=== PATIENT | female | born 1955 | race Caucasian/White ===

== ENCOUNTER 2021-04-14 13:03 | Emergency (ER) | payer OTHER, MEDICARE, SELFPAY ==
--- NOTE | ~2021-04-14 | XR_ITS ---
XR ribs RT 2V w CXR 2V DATE: 04/14/2021 17:35 INDICATION: Fall, right sided injury, pain TECHNIQUE: PA and lateral chest. 3 views of the right ribs. COMPARISON: None FINDINGS: Normal heart size. Aortic arch calcification, mild aortic unfolding. No hilar or mediastina l enlargement. The lungs are clear of infiltrate or consolidation. Diffuse osteopenia. No rib fracture is noted. Surgical clips overlie left breast shadow. IMPRESSION: No detected right rib fracture No active cardiac pulmonary disease Aortic calcification Surgical clips overlying left breast Reviewed, dictated and finalized at location [facility]. SCIENCES DIRECTOR
--- NOTE | ~2021-04-14 | CT_ITS ---
EXAMINATION: CT brain wo con DATE: 04/14/2021 18:01 INDICATION: Fall. Head injury. TECHNIQUE: Computed tomography (CT) of the head was performed without intravenous contrast. The mA wa s adjusted according to patient size. Iterative reconstruction technique was employed. Exam dose: 60 5.33 mGy-cm total exam DLP. COMPARISON: None FINDINGS: No intracranial mass lesion or hemorrhage or cerebrovascular accident. No midline shift or mass effect effect. No subdural or epidural hematoma. No fracture or bone destruction of the cranial vault. The mastoid air cells and included paranasal si nuses are normally aerated. IMPRESSION: No significant abnormality Reviewed, dictated and finalized at [facility]. Reviewed, dictated and finalized at location [facility]. [employer] INTERCEPT CONTROLLER IMPRESSION: No significant abnormality
[2021-04-14 13:44] VITALS: BP 177/78; PULSE 78; RESP 18; TEMP 36.6; O2SAT 100
[2021-04-14 15:30] VITALS: BP 155/99; PULSE 72; TEMP 36.7; O2SAT 100
[2021-04-14 16:08] VITALS: BP 161/82; PULSE 84; RESP 18; O2SAT 100
--- NOTE | 2021-04-14 18:38 | ED.FALL ---
HPI - Fall General Chief Complaint: Fall Stated Complaint: fall Time Seen by Provider: 04/14/21 16:18 Source: patient and family Mode of arrival: EMS Limitations: no limitations History of Present Illness HPI Narrative: 66-year-old was brought in ambulance with complaints of fall. Patient states that she lost her balance and fell hit the right side of her chest and back and her face. She denies loss of consciousness. She denies any chest pain. Denies any other injuries. complaint: fall Onset (ago): hour(s) (1) Fall from: standing Fall witnessed: yes, by family Place fall occurred: other (Parking lot) Loss of consciousness: none Context: other (Last balance) Location of injury: face and chest Severity: moderate Quality: dull Associated symptoms (after fall): headache and chest pain Related Data Allergies Allergy/AdvReac Type Severity Reaction Status Date / Time No Known Allergies Allergy Unknown Unverified 12/07/06 14:18 Review of Systems Review of Systems: All systems reviewed & are unremarkable except as noted in HPI and below Constitutional: Constitutional: Reports no additional constitutional complaints Eyes: Eyes: Reports no additional eye complaints ENT: Reports system reviewed and no additional complaints, except as documented Cardiovascular: Cardiovascular: Reports no additional cardiovascular complaints Respiratory: Respiratory: Reports as per HPI Gastrointestinal: Gastrointestinal: Reports no additional gastrointestinal complaints Musculoskeletal: Musculoskeletal: Reports no additional musculoskeletal complaints Integumentary/Breasts: Skin/Breast: Reports system reviewed and no additional complaints, except as docu Neurologic: Reports system reviewed and no additional complaints, except as documented [facility] Family History Family History Father Family history of congenital heart disease Patient's father is Sibling Patient's brother is in good health Family history of diabetes mellitus in first degree relative Family history of malignant neoplasm of breast in first degree relative, Onset Age: 51 Mother Family history of malignant neoplasm of breast in first degree relative, Onset Age: 86 Patient's mother is Social History Social History Smoking status: Never smoker Alcohol intake: never Exam Narrative: GENERAL: Well-appearing, obese, and in no acute distress. HEAD: Normocephalic, atraumatic. EYES: PERRLA and EOMI. ENT: Nares clear, no rhinorrhea or epistaxis. Mucous membranes moist. a small lac on the lower lip , no bleeding . no dental fracture NECK: Supple. CHEST: Clear to auscultation. No respiratory distress. minor bruising noted on the right side of the chest ,post axillary line HEART: Regular rate and rhythm. No murmur heard. Normal peripheral pulses. ABDOMEN: Soft, nontender, nondistended, normal active bowel sounds. EXTREMITIES: Normal range of motion. No edema. SKIN: Warm, dry, no rash. NEURO: No focal deficits. Alert and oriented x3. PSYCH: Normal mood and affect. Course Course Emergency Course: informed pt about her Xray finding , advised fall precautions, take pain meds as prescribed. Vital Signs Vital signs: Vital Signs Temperature 36.6 C 04/14/21 13:44 Pulse Rate 78 04/14/21 13:44 Respiratory Rate 18 04/14/21 13:44 Blood Pressure 177/78 H 04/14/21 13:44 Pulse Oximetry 100 04/14/21 13:44 Temperature 36.7 C 04/14/21 15:30 Pulse Rate 84 04/14/21 16:08 Respiratory Rate 18 04/14/21 16:08 Blood Pressure 161/82 H 04/14/21 16:08 Pulse Oximetry 100 04/14/21 16:08 MDM - Fall Imaging Data Radiologist's impression: ITS Impressions Ribs w/Chest X-Ray 04/14/21 17:44 IMPRESSION: No detected right rib fracture No active cardiac pulmonary disease Aortic calcification Surgica
[2021-04-14] MEDS: HYDROcodone/acetaminophen (*CRX) 5-325 MG TABLET 1 TAB PO (18:58)
[2021-04-14 19:03] VITALS: BP 166/105; PULSE 88; RESP 18; O2SAT 96
== END 2021-04-14 19:09 | disposition home or self-care (01) ==
PROVIDERS: Emergency Provider Family Medicine
DX: S00.83XA Contusion of other part of head, initial encounter (principal); S20.211A Contusion of right front wall of thorax, initial encounter; W18.39XA Other fall on same level, initial encounter
CPT/HCPCS: 70450; 71046; 71100; 99284; A9270

== ENCOUNTER 2022-11-01 15:54 | Emergency (ER) | payer MEDICARE, OTHER, SELFPAY ==
[2022-11-01 16:05] VITALS: BP 151/66; PULSE 77; RESP 16; TEMP 36.8; O2SAT 100
--- NOTE | 2022-11-01 16:27 | ED.LOWEXIN ---
HPI - Extremity Injury (Lower) General Chief Complaint: Extremity Injury, Lower Stated Complaint: Right Foot Pain Time Seen by Provider: 11/01/22 16:27 Source: patient, RN notes reviewed and old records reviewed Mode of arrival: ambulatory Limitations: no limitations History of Present Illness HPI Narrative: 67-year-old female presents to the [facility] with complaints of right foot that was bleeding. States she went to put on a pair of socks this morning and nicked a varicose vein. Try to control bleeding. Bleeding is currently controlled in clinic. Denies being on any blood thinners Related Data Home Medications Medication Instructions Recorded Confirmed hydrochlorothiazide 25 mg tablet 25 mg DIRECTED 11/01/22 11/01/22 levothyroxine 125 mcg tablet 125 mcg DIRECTED 11/01/22 11/01/22 meloxicam 15 mg tablet 15 mg DIRECTED 11/01/22 11/01/22 pantoprazole 40 mg tablet,delayed 40 mg PO DIRECTED 11/01/22 11/01/22 release pramipexole 0.5 mg tablet 0.5 mg DIRECTED 11/01/22 11/01/22 Allergies Allergy/AdvReac Type Severity Reaction Status Date / Time adhesive Allergy Mild Rash Verified 11/01/22 16:20 Review of Systems Review of Systems: All systems reviewed & are unremarkable except as noted in HPI and below Constitutional: Constitutional: Reports no additional constitutional complaints Eyes: Eyes: Reports no additional eye complaints ENT: Reports system reviewed and no additional complaints, except as documented Cardiovascular: Cardiovascular: Reports no additional cardiovascular complaints, Denies chest pain and Denies dyspnea Respiratory: Respiratory: Reports no additional respiratory complaints, Denies chest congestion, Denies cough and Denies dyspnea Gastrointestinal: Gastrointestinal: Reports no additional gastrointestinal complaints, Denies abdominal pain, Denies nausea and Denies vomiting Musculoskeletal: Musculoskeletal: Reports no additional musculoskeletal complaints Integumentary/Breasts: Skin/Breast: Reports as per HPI Neurologic: Reports system reviewed and no additional complaints, except as documented Psychiatric: Psychiatric: Reports no additional psychiatric complaints Allergic/Immunologic: Allergic/Immunologic: Reports no additional allergic/immunologic complaints [facility] Family History Family History Father Family history of congenital heart disease Patient's father is Sibling Patient's brother is in good health Family history of diabetes mellitus in first degree relative Family history of malignant neoplasm of breast in first degree relative, Onset Age: 51 Mother Family history of malignant neoplasm of breast in first degree relative, Onset Age: 86 Patient's mother is Social History Social History Smoking status: Never smoker Alcohol intake: never Comments At the time of my signature, I reviewed and agree with the nursing past medical, surgical, social, and family history. There is no relevant family history pertinent to the patient complaint. Exam Const: General: cooperative, healthy appearing, comfortable, no acute distress, well developed, alert and well nourished Nutritional Appearance: well nourished and obese Orientation/consciousness: patient oriented x3 Limitations: no limitations HENMT: Head: normal to inspection Ears: hearing grossly normal bilaterally and external ears normal Face/Nose/Sinus: Normal external nose present, Normal nares present, Normal nasal mucous membranes and turbinates present and normal facial exam Face and sinus: normal facial exam Mouth: Yes lip normal Eyes: General: appearance normal, both eyes and all related structures Alignment and Position: alignment normal Periorbital: periorbital findings normal Pupils: Equal, round and reactive pupils present EOM: EOMs intact bilaterall
== END 2022-11-01 16:43 | disposition home or self-care (01) ==
PROVIDERS: Emergency Provider Nurse Practitioner
DX: I83.91 Asymptomatic varicose veins of right lower extremity (principal); Z96.653 Presence of artificial knee joint, bilateral; E03.9 Hypothyroidism, unspecified; G25.81 Restless legs syndrome; Z85.3 Personal history of malignant neoplasm of breast; Z92.3 Personal history of irradiation
CPT/HCPCS: 99212; G0463

== ENCOUNTER 2022-11-01 19:08 | Emergency (ER) | payer MEDICARE, OTHER, SELFPAY ==
[2022-11-01 19:10] VITALS: BP 154/60; PULSE 84; RESP 16; TEMP 36.6; O2SAT 95
[2022-11-01] MEDS: SILVER NITRATE (*SP) STICK 1 EACH TOPICAL (20:17)
--- NOTE | 2022-11-01 20:23 | ED.GENADULT ---
HPI - General Adult General Chief complaint: Unspecified Stated complaint: varicose vein of foot Time Seen by Provider: 11/01/22 19:16 History of Present Illness HPI narrative: This is 59-year-old female with varicose veins presenting with a bleed on her foot. She noticed that she had a small pinprick that kept oozing blood this morning at 7:00 a.m.. There are controlled with gauze and pressure but it started bleeding again at 4:00 p.m.. She has seen in urgent care where they were able to control bleeding but then it started again. She then came to the hospital. She is not on any blood thinners or anticoagulation. She denies any chest pain difficulty breathing dizziness or lightheadedness. She has appointment to see physician about her varicose veins in the next month. Goal of today's visit is bleeding control. Related Data Home Medications Medication Instructions Recorded Confirmed hydrochlorothiazide 25 mg tablet 25 mg DIRECTED 11/01/22 11/01/22 levothyroxine 125 mcg tablet 125 mcg DIRECTED 11/01/22 11/01/22 meloxicam 15 mg tablet 15 mg DIRECTED 11/01/22 11/01/22 pantoprazole 40 mg tablet,delayed 40 mg PO DIRECTED 11/01/22 11/01/22 release pramipexole 0.5 mg tablet 0.5 mg DIRECTED 11/01/22 11/01/22 Allergies Allergy/AdvReac Type Severity Reaction Status Date / Time adhesive Allergy Mild Rash Verified 11/01/22 19:08 [facility] Past Medical History Medical History Varicose veins of ankle Family History Family History Father Family history of congenital heart disease Patient's father is Sibling Patient's brother is in good health Family history of diabetes mellitus in first degree relative Family history of malignant neoplasm of breast in first degree relative, Onset Age: 51 Mother Family history of malignant neoplasm of breast in first degree relative, Onset Age: 86 Patient's mother is Social History Social History Smoking status: Never smoker Alcohol intake: never Exam Narrative: APPEARANCE: No apparent distress. Head: atraumatic. 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 There is a small pinprick on the dorsum of the foot that is not actively bleeding. ABDOMINAL: Non-distended MUSCULOSKELETAl: No obvious deformities NEURO: Alert. Moving 4/4 extremities SKIN:: Warm, dry. Normal color PSYCHIATRIC: Normal affect Course Vital Signs Vital signs: Vital Signs Temperature 97.8 F 11/01/22 19:10 Pulse Rate 84 11/01/22 19:10 Respiratory Rate 16 11/01/22 19:10 Blood Pressure 154/60 H 11/01/22 19:10 Pulse Oximetry 95 11/01/22 19:10 Oxygen Delivery Room Air 11/01/22 19:10 Temperature 97.8 F 11/01/22 19:10 Pulse Rate 84 11/01/22 19:10 Respiratory Rate 16 11/01/22 19:10 Blood Pressure 154/60 H 11/01/22 19:10 Pulse Oximetry 95 11/01/22 19:10 Oxygen Delivery Room Air 11/01/22 19:10 Medical Decision Making MDM Narrative Medical decision making narrative: -Presentation: 67-year-old female presenting with and oozing pinprick to the top of her foot. The area was cauterized with hemostasis achieved. No other complaints. 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 -Shared decision making / Disposition: Discharge with primary care follow-up. Return precautions given. Patient educated on hemost
== END 2022-11-01 20:39 | disposition home or self-care (01) ==
PROVIDERS: Emergency Provider Emergency Medicine
DX: I83.891 Varicose veins of right lower extremity with other complications (principal)
CPT/HCPCS: 11740; 99283